=== PATIENT | female | born 1975 | race Caucasian/White ===

== ENCOUNTER → 2020-08-18 | Outpatient (CLI) | payer BC ==
[~2020-08-18] MED LIST: ANUSOL-HC SUPPO25 MG RC; MOTRIN 800800 MG/TAB PO; MULTIPLE VITAMI1 CAP PO; PERCOCET 325 MG1 TA2 PO; PRENATAL VITA1 UDTAB PO; SYNTHROID0.075 MG/T PO; VITAMIN B COMPL1 T16 PO; ZYRTEC 10MG10 MG PO
== END ==
LOC: MC.RAD 11:20
DX: Z12.31 Encounter for screening mammogram for malignant neoplasm of breast (principal); R92.0 Mammographic microcalcification found on diagnostic imaging of breast

== ENCOUNTER → 2020-08-23 | Outpatient (CLI) | payer BC | LOC: MC.RAD 13:00 | DX: R92.0 Mammographic microcalcification found on diagnostic imaging of breast (principal) ==

== ENCOUNTER → 2020-08-31 | Outpatient (CLI) | payer BC | LOC: MC.RAD 06:53 | DX: R92.0 Mammographic microcalcification found on diagnostic imaging of breast (principal); Z98.82 Breast implant status ==

== ENCOUNTER → 2024-01-16 | Outpatient (CLI) | payer BC | LOC: MC.RAD 10:39 | DX: Z12.31 Encounter for screening mammogram for malignant neoplasm of breast (principal) ==